=== PATIENT | male | born 1940 | race Caucasian/White ===

== ENCOUNTER 2017-03-01 11:53 | Day surgery (SDC) | payer MEDICARE ==
[~2017-03-01] VITALS: Ht 167.6 cm; Wt 74.8 kg
[~2017-03-01 11:53] MED LIST: CALC-786 PO; CHOL200025 PO; DICL100T2 PO; DOXY-226 PO; GABA600T2 PO; HYDR-4003 PO; IBUP-1827 PO; LEVO50TA6 PO; LOSA50TA37 PO; MAGN100T5 PO; MOME13HF4 IH; OMEG500C PO; PRAV20TA2 PO; Sodium Chloride LOK Flush 10 mL Syringe IV PRN; TAMS0.4C98 PO; fentaNYL-PF 50 mCg/mL 2 mL Inj IVPUSH PRN
[2017-03-01 12:46] VITALS: BP 152/76; PULSE 57; RESP 16; O2SAT 95
[2017-03-01] MEDS: 0.9% Sodium Chloride 1,000 ML IV SCH ×2 (12:46→14:21)
--- NOTE | 2017-03-01 14:33 | PCM.ENDEGD ---
EGD Date of Service: Mar 01, 2017 Physician Arvin Hickman MD Pre Procedure Diagnosis: Anemia Post Procedure Dx & Findings: Gastritis Possible Jasso's Procedure Esophagogastroduodenoscopy PROCEDURE IN DETAIL: After proper sedation, Olympus video endoscope was inserted into patient's mouth and esophagus was successfully intubated. Scope introduced esophagus. Esophagus showed normal shiny whitish mucosa consistent with squamous cell component. Z line was at 40 cm from the incisors. There was 2 cm length of salmon-colored mucosa. 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 Narrow banding done. No ulcer mass erosion nodule noted. Scope further advanced to the stomach. Stomach showed normal shiny mucosa with normal appearing rugae folds without any ulcer mass erosion. However in the fundus and proximal body, there was specks of old blood and irritation noted. Multiple biopsies obtained in this area. Cardia fundus body antrum pylorus were all visualized. Retroflexion was done. Stomach was easily inflated and deflatable using air. Scope further events to the distal duodenum. Duodenum revealed normal villous structures with normal appearing folds without any mass ulcer erosion. 5 biopsies obtained. Impression Anemia Gastritis at the fundus and the proximal body of the stomach. 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 Recommendation await biopsies Presedation Assessment Risks and Benefits Informed consent was obtained from the patient after all risks and benefits including but not limited to drug reaction, infection, pain, bleeding, perforation, as well as alternatives were discussed. Patient monitoring Continuous pulse oximetry, cardiac monitoring, blood pressure monitoring, IV access, and oxygen at 2L per nasal cannula. Periprocedural Fentanyl: Fentanyl 100mcg Incrementally Midazolam: Midazolam 7mg Incrementally Complications There were no periprocedural complications identified. Post Procedure Plan Post Procedure Recommendations 1. Restrict activities today. 2. Resume normal activities in the morning. 3. Resume medications. 4. GERD behavioral modification: - Avoid fatty, acidic, spicy, large meals - Do not lie down after meals - Do not eat or drink anything for at least 2 1/2 hours before going to bed at night - Discontinue tobacco and alcohol - Decrease or avoid caffeine - Avoid chocolate and mints - Decrease weight - Avoid aspirin and non steroidal anti-inflammatory agents (NSAID) such as Aleve, Advil, Mobic, Naproxen, Ibuprofen, etc 5. Add proton pump inhibitor. Take 30 minutes before 1st meal of the day. 6. Patient informed of normal post procedure side effects as bloating, drowsiness, blood streaking in the stool 7. If gastric biopsy reveal H.pylori, continue with appropriate treatment 8. If small bowel biopsy reveals celiac, continue with appropriate treatment 9. Please don't hesitate to call me with any questions Arvin Hickman MD Mar 01, 2017 14:33
[2017-03-01 14:34] VITALS: BP 124/61; PULSE 63; RESP 16; O2SAT 99
--- NOTE | 2017-03-01 14:36 | PCM.ENDCOL ---
Colonoscopy Date of Service: Mar 01, 2017 Physician Arvin Hickman MD Pre Procedure Diagnosis: Anemia Post Procedure Dx & Findings: AVM diverticula hemorrhoids Procedure Colonoscopy PROCEDURE IN DETAIL: Prep adequate Withdrawal time 13 minutes After unremarkable rectal examination the Olympus video colonoscope was inserted patient's anal canal and was advanced to cecum. Landmarks were identified including the ileocecal valve and appendiceal orifice. Scope further events to the terminal ileum. Visualized terminal ileum showed normal villous structures without any ulcer or mass erosion. Advanced 10 cm. Scope was withdrawn systematically. Visualized colonic mucosa showed healthy shiny mucosa with normal healthy-appearing vasculature. In the cecum, there were 2 AVMs 1 cm each. There were also another 2 AVMs in the appendiceal orifice going into the appendix. A size of these are not clear because its going into the appendiceal orifice. None of the AVMs were bleeding or oozing blood. In the sigmoid colon there were medium size several diverticuli. In the rectum retroflexion was done which showed hemorrhoids. Anal canal was inspected carefully on the way out and hemorrhoids noted. Impression AVMs without any bleeding Diverticuli Hemorrhoids Recommendation Repeat colonoscopy in 10 years if there is no personal or family history of colon cancer or polyp. If so, repeat in 5 years. Diverticular diet Presedation Assessment Risks and Benefits Informed consent was obtained from the patient after all risks and benefits including but not limited to drug reaction, infection, pain, bleeding, perforation, as well as alternatives were discussed. Patient monitoring Continuous pulse oximetry, cardiac monitoring, blood pressure monitoring, IV access, and oxygen at 2L per nasal cannula. Complications There were no periprocedural complications identified. Post Procedure Plan Post Procedure Recommendations 1. Restrict activities today. 2. Resume normal activities in the morning. 3. Resume medications. 4. Patient informed of normal post procedure side effects as bloating, drowsiness, blood streaking in the stool. 5. average risk CRCS. If colon polyps come back as: -Hyperplastic- can repeat colonoscopy in 10 years -Tubular adenoma- repeat colonoscopy in 5 years -Tubulovillous/villous adenoma- repeat colonoscopy in 3 years -If any dysplasia- return to clinic as soon as possible 6. Please don't hesitate to call me with any questions. Arvin Hickman MD Mar 01, 2017 14:36
[2017-03-01 14:50] VITALS: BP 131/85; PULSE 64; RESP 16; O2SAT 97
--- NOTE | 2017-03-03 16:52 | PATH ---
SURGICAL PATHOLOGY Attending Physician:Arvin Hickman M.D. CASE STATUS: Signed Out PATIENT NAME: HAO DAIGLE PID: [id number] : 1940 DATE COLLECTED:03/01/2017 00:00 SPECIMEN: 1: Duodenum, Biopsy 2: Gastric, Biopsy 3: Esophagus, Biopsy CLINICAL HISTORY: 1). DUODENAL BIOPSY 2). GASTRIC BIOPSY, RULE OUT POSSIBLE H.PYLORI 3). DISTAL ESOPHAGUS, RULE OUT POSSIBLE FOREMAN'S FINAL DIAGNOSIS: 1.DUODENAL BIOPSY: CHRONIC DUODENITIS WITH FOCAL SUPERFICIAL MUCOSAL EROSION. Negative for evidence of celiac disease. Negative for dysplasia and malignancy. 2.GASTRIC BIOPSY: MILD CHRONIC GASTRITIS INVOLVING ANTRAL AND FUNDIC MUCOSA. Negative for evidence of Helicobacter on H&E stain. Negative for intestinal metaplasia. Negative for dysplasia and malignancy. 3.DISTAL ESOPHAGUS BIOPSY: SQUAMOUS MUCOSA AND GASTRIC CARDIA-TYPE MUCOSA POSITIVE FOR SPECIALIZED METAPLASIA OF FOREMAN' S-TYPE ESOPHAGUS. Negative for dysplasia and malignancy. Negative for squamous intraepithelial eosinophils. [id number] GROSS DESCRIPTION: 1. Received in formalin, labeled with the patient's name and "duodenal biopsy" are three fragments of tristan soft tissue ranging from 0.1 x 0.1 x 0.1 cm to 0.4 x 0.2 x 0.2 cm. The fragments are totally submitted in cassette 1A. 2. Received in formalin, labeled with the patient's name and "gastric biopsy, R/O H. pylori" are two fragments of tristan soft tissue ranging from 0.2 x 0.2 x 0.1 x 0.1 cm to 0.3 x 0.2 x 0.1 cm. The fragments are totally submitted in cassette 2A. 3. Received in formalin, labeled with the patient's name and "distal esophagus, R/O possible Foreman's" are four fragments of tristan soft tissue ranging from 0.1 x 0.1 x 0.1 cm to 0.3 x 0.2 x 0.1 cm. The fragments are totally submitted in cassette 3A. ([id number]) MICRO DESCRIPTION: See diagnosis. ICD-9 CODES: CPT CODES: 1: 85169 2: 17951 3: 67778 Electronically Signed Out Maksim Josue MD [facility] [address], [place] [address] Technical component performed at [facility], [address], [place], [address]
== END 2017-03-01 23:59 | disposition home or self-care (01) ==
LOC: END 11:53
PROVIDERS: ATTEND Internal Medicine
DX: D64.9 Anemia, unspecified (principal); K57.30 Diverticulosis of large intestine without perforation or abscess without bleeding; K64.8 Other hemorrhoids; K55.20 Angiodysplasia of colon without hemorrhage; K22.70 Barrett's esophagus without dysplasia; K29.50 Unspecified chronic gastritis without bleeding; K29.80 Duodenitis without bleeding; K59.00 Constipation, unspecified
CPT/HCPCS: 43239; 45378; 99153; G0500; J2250; J3010; J7030